=== PATIENT | female | born 1940 | race Caucasian/White ===

== ENCOUNTER 2017-05-10 11:35 | Emergency (ER) | payer OTHER ==
[~2017-05-10] VITALS: Ht 157.5 cm; Wt 74.8 kg
[~2017-05-10 11:35] MED LIST: ATENOLOL50 M1 PO; BENTYL10 M1 PO; CLOPIDOGREL75 M1 PO; NEXIUM40 M1 PO
--- NOTE | 2017-05-10 12:05 | ED GI/GU/ABDOMINAL COMPLAINT ---
History of Present Illness General Chief Complaint: Abdominal Pain/Flank Pain Stated Complaint: UPPER ABD PAIN Source: patient Exam Limitations: no limitations Vital Signs & Intake/Output Vital Signs & Intake/Output Vital Signs Date Time Temp Pulse Resp B/P B/P Pulse O2 O2 Flow FiO2 Mean Ox Delivery Rate 05/10 1545 98.4 66 16 108/62 98 Room Air 05/10 1317 Room Air 05/10 1317 98.0 63 18 164/72 98 Room Air 05/10 1146 98.5 73 16 191/69 95 Room Air Allergies Coded Allergies: aspirin (Intermediate, [facility] 05/10/17) Reconcile Medications Atenolol 50 MG TABLET 1 TAB PO DAILY BP (Reported) Clopidogrel Bisulfate (Clopidogrel) 75 MG TABLET 1 TAB PO DAILY BLOOD THINNER (Reported) Dicyclomine Hydrochloride (Bentyl) 10 MG CAPSULE 1 CAP PO DAILY SPASTIC COLON (Reported) Esomeprazole (Nexium) 40 MG CAPSULE. 1 CAP PO DAILY GI (Reported) Triage Note: PT SIB DR MCGUIRE FOR HTN URGENCY. STATES SHE IS HAVING UPPER ABDOMINAL PAIN. DENIES ANY CP/SOB. DENIES ANY N/V. Triage Nurses Notes Reviewed? yes ? N Is pt currently ? No Duration: constant Timing: recent history Quality/Severity: sharpness, severe Radiation: no radiation Activities at Onset: none HPI: Patient is a 77-year-old female with a past medical history of hypertension, hyperlipidemia, GERD and which patient states that she is on Plavix due to her significantly elevated hyperlipidemia who presents emergency room stating that for the past few days she's noticed intermittent epigastric pain however today the past 6 hours symptoms of epigastric pain has persisted. Patient was complaints sharp stabbing 7 out of 10 epigastric localized pain. However in last 20-30 minutes symptoms have completely resolved. Patient denies taking any medications for symptoms. Last bowel movement was 2 days ago. Denies any significant NSAID use denies any alcohol use. Patient denies any fever chills chest pain arm pain jaw pain nausea vomiting dysuria hematuria vaginal bleeding vaginal discharge leg swelling shortness of breath cough. Denies any alcohol use (CRYSTAL QUAN,MASHA) Past History Travel History Traveled to [place] past 21 day No Medical History Any Pertinent Medical History? see below for history Cardiovascular: hypertension, hyperlipidemia Gastrointestinal: GERD, SPASTIC COLON Surgical History Surgical History: Psychosocial History What is your primary language [place] Tobacco Use: Never used Family History Hx Contributory? No (MASHA SIMONS) Review of Systems Review of Systems Constitutional: Reports: no symptoms. EENTM: Reports: no symptoms. Respiratory: Reports: no symptoms. Cardiovascular: Reports: no symptoms. GI: Reports: see HPI, abdominal pain. Genitourinary: Reports: no symptoms. Musculoskeletal: Reports: no symptoms. Skin: Reports: no symptoms. Neurological/Psychological: Reports: no symptoms. Hematologic/Endocrine: Reports: no symptoms. Immunologic/Allergic: Reports: no symptoms. All Other Systems: Reviewed and Negative (MASHA SIMONS) Physical Exam Physical Exam General Appearance: no apparent distress, alert, comfortable Gastrointestinal: normal bowel sounds, soft Comments: Well-developed well-nourished person in no acute distress HEENT: Normal EENT exam, Neck: Supple, no lymphadenopathy, normal range of motion without pain or tenderness Back: Nontender, no CVA tenderness. Cardiovascular: Regular rate and rhythms no murmurs rubs or gallops, normal JVP Respiratory: Chest nontender. No respiratory distress.breath sounds clear to auscultation bilaterally Abdomen: Epigastric and right upper quadrant moderate point tenderness, no right lower quadrant pain no peritoneal signs Extremity: No edema, no calf tenderness to palpation, normal and equal pulses. Neuro: Alert oriented x3, motor sensory normal, Skin: No appreciable rash on exposed skin, skin is warm and dry. Psych: Mood and affect is normal, memory and judgment is normal. Core Measures ACS in differential dx? No Severe Sepsis Present: No Septic Shock Present: No (MASHA SIMONS) Progress Differential Diagnosis: AAA, AMI, appendicitis, biliary colic, bowel obstruction , colon cancer, cholecystitis, diverticulitis, endometritis, esophageal varices, gastritis, hepatitis, hernia, hemorrhoids, ischemic bowel, inflamm bowel dis, kidney stone, Milagro-Anita tear, ovarian cyst, ovarian torsion, pancreatitis, PID/cervicitis, peptic ulcer, PUD/GERD, perforated viscous, SBO, threatened AB, UTI/pyelo Plan of Care: Orders Procedure Date/time Status DIRECT LDL 05/10 1250 Complete Add-on Test (ER Only) 05/10 1246 Active TROPONIN LEVEL 05/10 1209 Complete LIPID PANEL 05/10 1209 Complete LIPASE 05/10 1209 Complete DIRECT BILIRUBIN 05/10 1209 Complete AMYLASE 06/09 1209 Complete PARTIAL THROMBOPLASTIN TIME 05/10 1208 Complete PROTHROMBIN TIME 05/10 1208 Complete COMPREHENSIVE METABOLIC PANEL 05/10 1208 Complete CBC WITHOUT DIFFERENTIAL 05/10 1208 Complete EKG 05/10 113 Active Laboratory Tests 05/10/17 1250: Anion Gap 10, Estimated GFR > 60, BUN/Creatinine Ratio 21.4, Glucose 99, Calcium 9.9, Total Bilirubin 0.4, Direct Bilirubin 0.3, AST 14, ALT 37, Alkaline Phosphatase 82, Troponin I < 0.01, Total Protein 7.0, Albumin 4.0, Globulin 3.0, Albumin/Globulin Ratio 1.3, Triglycerides 444 H, Cholesterol 261 H, LDL Cholesterol Direct 158.59 H, LDL Cholesterol, Calc ND, HDL Cholesterol 42, Cholesterol/HDL Ratio 6 H, Amylase 46, Lipase 74, PT 10.5, INR 1.00, APTT 32 05/10/17 1209: CBC w Diff NO MAN DIFF REQ, RBC 5.33, MCV 77.4 L, MCH 25.9 L, RDW 14.0, MPV 8.8, Gran % 57.1, Lymphocytes % 35.7, Monocytes % 5.5, Eosinophils % 1.4, Basophils % 0.3, Absolute Granulocytes 7.2 H, Absolute Lymphocytes 4.5 H, Absolute Monocytes 0.7 H, Absolute Eosinophils 0.2, Absolute Basophils 0, PUBS MCHC 33.4 It is noted that patient's blood pressure did significantly improve and which she did take her previously prescribed atenolol while she was in the emergency room. Upon discharge patient looks well no apparent distress and will comply discharge instructions and had no questions. While patient was in the emergency room she had no exacerbation of any pain and was asymptomatic. Blood work was unremarkable as was the ultrasound showing no concerns of pancreatitis cholecystitis troponin was negative EKG was unremarkable. (CRYSTAL QUAN,MASHA) Diagnostic Imaging: Viewed by Me: Ultrasound. Radiology Impression: no acute abnormality Initial ED EKG: normal p-waves, normal QRS complex, SINUS RHYTHM NOTED 72 BPM, LAD Prior EKG: unchanged Comments: PATIENT: DUY MATT PRESENT AGE: 77 PATIENT ACCOUNT NO: [id number] : 41 LOCATION: [facility] ORDERING PHYSICIAN: MASHA QUAN SERVICE DATE: 05/10/17 EXAM TYPE: US - US-LIMITED ABDOMEN EXAMINATION: US ABDOMEN LIMITED CLINICAL INFORMATION: CT Abdomen and Pelvis 12/30/2012. MRI Abdomen with and without contrast. COMPARISON: None. TECHNIQUE: Real-time imaging of the right upper quadrant abdominal viscera. FINDINGS: PANCREAS: Normal. LIVER: Increased echogenicity of the liver parenchyma indicative of fatty infiltration of the liver. The liver demonstrates normal size and contour. No focal lesion or intrahepatic biliary duct dilatation. GALLBLADDER: Unremarkable. The gallbladder is physiologically distended without evidence of stones, sludge, polyps, wall thickening or pericholecystic fluid. COMMON BILE DUCT: Normal in caliber measuring 0.4 cm in diameter. RIGHT KIDNEY: Mild renal cortical thinning. No hydronephrosis. No renal calculi or focal parenchymal lesions. The kidney measures 10.9 cm in maximum dimension. FREE FLUID: None. IMPRESSION: Increased echogenicity of the liver parenchyma indicative of fatty infiltration of the liver. Otherwise, unremarkable abdominal ultrasound. No cholelithiasis or secondary signs of acute cholecystitis. DICTATED BY: OBIE DAUGHERTY MD DATE/TIME DICTATED:05/10/171535 (MASHA SIMONS) Departure Departure Disposition: HOME OR SELF CARE Condition: Stable Clinical Impression Primary Impression: Epigastric pain Referrals: PATRICK ARAUZ,VENECIA MORRELL MD,AZUCENA Bowen (PCP/Family) Additional Instructions: As discussed if symptoms worsen or if you develop any new concerning symptom return to emergency room immediately. On Saturday of symptoms still persist please call precision machinist for further evaluation and treatment. Continue all medications as directed. Departure Forms: Customer Survey General Discharge Information (MASHA SIMONS) PA/MEDIA CENTER SPECIALIST Co-Sign Statement Statement: ED Attending supervision documentation- [x] I saw and evaluated the patient. I have also reviewed all the pertinent lab results and diagnostic results. I agree with the findings and the plan of care as documented in the PA's/MEDIA CENTER SPECIALIST's documentation. [] I have reviewed the ED Record and agree with the PA's/MEDIA CENTER SPECIALIST's documentation. [] Additions or exceptions (if any) to the PAs/MEDIA CENTER SPECIALIST's note and plan are summarized below: [] (DEBORAH ARAUZ,PAYTON Gambino)
[2017-05-10 12:25] LABS: ABSOLUTE BASOPHIL COUNT 0 /CUMM (0.0-0.2); ABSOLUTE EOSINOPHIL COUNT 0.2 /CUMM (0.0-0.7); ABSOLUTE GRANULOCYTE CT 7.2 /CUMM (1.4-6.5); ABSOLUTE LYMPH COUNT 4.5 /CUMM (1.2-3.4); ABSOLUTE MONOCYTE COUNT 0.7 /CUMM (0.10-0.60); BASOPHIL % 0.3 % (0.0-2.0); EOSINOPHIL % 1.4 % (0-5); GRANULOCYTE % 57.1 % (42.2-75.2); HEMATOCRIT 41.2 % (37-47); MEAN CORPUSCULAR HGB 25.9 PG (27.0-31.0); MEAN CORPUSCULAR HGB CONC 33.4 G/DL (33.0-37.0); MEAN CORPUSCULAR VOLUME 77.4 FL (81.0-99.0); MEAN PLATELET VOLUME 8.8 FL (7.4-10.4); PLATELET COUNT 246 /CUMM (130-400); RED BLOOD CELL CT 5.33 /CUMM (4.20-5.40); WHITE BLOOD CELL COUNT 12.7 /CUMM (4.8-10.8)
[2017-05-10 13:21] LABS: PT 10.5 SEC (9.4-12.5); PTT 32 SEC (25-37)
[2017-05-10 15:45] VITALS: BP 108/62
--- NOTE | 2017-05-10 15:53 | ULTRASOUND REPORT ---
EXAMINATION: US ABDOMEN LIMITED CLINICAL INFORMATION: CT Abdomen and Pelvis 12/30/2012. MRI Abdomen with and without contrast. COMPARISON: None. TECHNIQUE: Real-time imaging of the right upper quadrant abdominal viscera. FINDINGS: PANCREAS: Normal. LIVER: Increased echogenicity of the liver parenchyma indicative of fatty infiltration of the liver. The liver demonstrates normal size and contour. No focal lesion or intrahepatic biliary duct dilatation. GALLBLADDER: Unremarkable. The gallbladder is physiologically distended without evidence of stones, sludge, polyps, wall thickening or pericholecystic fluid. COMMON BILE DUCT: Normal in caliber measuring 0.4 cm in diameter. RIGHT KIDNEY: Mild renal cortical thinning. No hydronephrosis. No renal calculi or focal parenchymal lesions. The kidney measures 10.9 cm in maximum dimension. FREE FLUID: None. IMPRESSION: Increased echogenicity of the liver parenchyma indicative of fatty infiltration of the liver. Otherwise, unremarkable abdominal ultrasound. No cholelithiasis or secondary signs of acute cholecystitis.
== END 2017-05-10 16:10 ==
LOC: ERH 11:35
PROVIDERS: Physician Assistant
DX: R10.13 Epigastric pain (principal)
CPT/HCPCS: 93005; 93010